=== PATIENT | female | born 1950 | race Caucasian/White ===

== ENCOUNTER → 2020-06-29 | Outpatient (CLI) | payer BC | LOC: MC.RAD 14:49 | DX: Z12.31 Encounter for screening mammogram for malignant neoplasm of breast (principal) ==

== ENCOUNTER 2021-03-26 18:39 | Emergency (ER) | payer BC ==
[~2021-03-26] VITALS: Ht 160 cm; Wt 68.2 kg
[2021-03-26 19:28] VITALS: TEMP 97.4
[2021-03-26 20:57] LABS: BASO # 0.1 (0.0-0.2); BASO % 1.1 % (0.0-2.0); EOS # 0.1 (0.0-0.7); EOS % 2.6 % (0-4.0); GRAN # 2.5 (1.4-6.5); GRAN % 52.7 % (42.2-75.2); HEMATOCRIT 43.9 % (37.0-47.0); HEMOGLOBIN 14.5 g/dl (12.5-16.0); LYMPH # 1.6 (1.2-3.4); LYMPH % 34.4 % (20.0-51.0); MEAN CELL VOLUME 98 fl (80.0-100.0); MEAN CORPUSCULAR HEMOGLOBIN 32 pg (27.0-31.0); MEAN CORPUSCULAR HGB CONC 33 g/dl (33.0-37.0); MONO # 0.4 (0.1-0.6); PLATELET COUNT 243 K/mm3 (130-400); RED BLOOD COUNT 4.49 M/mm3 (4.10-5.30); REDCELL DISTRIBUTION WIDTH-CV 13.8 % (11.5-14.5)
[2021-03-26 21:08] LABS: COLLECTION METHOD CLEAN CATCH
[2021-03-26 21:10] LABS: ALANINE AMINOTRANSFERASE 55 U/L (4-34); ALBUMIN 4.5 gm/dL (3.5-5.0); ALCOHOL(ethanol),MEDICAL 266 mg/dL; ALKALINE PHOSPHATASE 68 U/L (50-136); ANION GAP 15 mmol/L (7-16); AST,SGOT 77 U/L (15-37); BILIRUBIN,TOTAL 0.4 mg/dL (0.0-1.0); BLOOD UREA NITROGEN 17 mg/dL (7-17); CARBON DIOXIDE 23 mmol/L (22-30); CHLORIDE 107 mmol/L (98-107); CREATININE, serum 0.65 (0.52-1.25); GLUCOSE 94 mg/dL (74-106); POTASSIUM 4.1 mmol/L (3.4-5.0); SODIUM 144 mmol/L (137-145); TOTAL PROTEIN 7.3 gm/dL (6.4-8.2)
[2021-03-26 21:18] LABS: PH 6 (5-8); SQUAMOUS EPITHELIAL 0-2 /hpf; URINE APPEARANCE Clear; URINE BACTERIA Rare /hpf; URINE BILIRUBIN Negative (NEGATIVE); URINE BLOOD Negative (NEGATIVE); URINE COLOR Yellow; URINE GLUCOSE Negative (NEGATIVE); URINE KETONE Negative (NEGATIVE); URINE LEUKOCYTE ESTERASE Trace (NEGATIVE); URINE NITRATE Positive (NEGATIVE); URINE PROTEIN(semi-quant) Negative (NEGATIVE); URINE RBC 0-2 /hpf; URINE UROBILINOGEN Negative (NEGATIVE)
[2021-03-26 21:22] LABS: TROPONIN-I < 0.012 ng/mL (0.000-0.035)
[2021-03-26 21:23] LABS: TRICYCLIC ANTIDEPRESS URINE NEGATIVE
[2021-03-26 21:51] VITALS: BP 131/84; PULSE 83
== END 2021-03-26 21:42 | disposition home or self-care (01) ==
LOC: COL.ER 18:39
PROVIDERS: Physician Assistant
DX: F10.129 Alcohol abuse with intoxication, unspecified (principal); Y90.8 Blood alcohol level of 240 mg/100 ml or more

== ENCOUNTER → 2021-09-06 | Outpatient (CLI) | payer BC | LOC: MC.RAD 10:23 | DX: Z12.31 Encounter for screening mammogram for malignant neoplasm of breast (principal) ==

== ENCOUNTER 2022-07-26 10:32 | Day surgery (SDC) | payer BC ==
[~2022-07-26] VITALS: Ht 160 cm; Wt 67.0 kg
[2022-07-26] MEDS ORDERED: GLUCOPHAGE XR500 M1 PO (11:13)
[2022-07-26] MEDS ORDERED: ARMOUR THYROID90 MG PO (11:14)
[2022-07-26] MEDS ORDERED: ARMOUR THYROID15 MG PO (11:15)
[2022-07-26] MEDS ORDERED: PROMETRIUM100 MG PO (11:16)
[2022-07-26] MEDS ORDERED: OMEGA-3 FISH1000 MG PO (11:17)
[2022-07-26] MEDS ORDERED: VITAMIND3 5000 PO (11:18)
[2022-07-26] MEDS ORDERED: B-12 500 MCG PO (11:19)
[2022-07-26] MEDS ORDERED: THE MEDICINE S200 M2 PO (11:20)
[2022-07-26 12:02] VITALS: BP 115/66; PULSE 51; TEMP 97.6
[2022-07-26] MEDS ORDERED: NORCO 325 MG-51 TAB PO (15:17)
[2022-07-26 15:35] VITALS: BP 132/65; PULSE 55; TEMP 98
[2022-07-26 15:50] VITALS: BP 116/55; PULSE 54
[2022-07-26 16:05] VITALS: BP 115/69; PULSE 59
[2022-07-26 16:20] VITALS: BP 129/60; PULSE 54
--- NOTE | 2022-07-26 17:10 | NUR ---
1535-PT TO BAY 4 PER CART FROM PACU. REPORT RECEIVED. VS OBTAINED. CALL LIGHT WITHIN REACH. PT DENIES ANY NEEDS AT THIS TIME. 1550-PT TOLERATING ICED TEA WITHOUT DIFFICULTY. 1630-PT AMBULATED TO RESTROOM WIHTOUT DIFFICULTY AND VOIDED. 1640-IV DC'D AT THIS TIME. 1700-DISCHARGE EDUCATION COMPLETED WITH PT AND HER . VERBALIZED UNDERSTANDING OF HOME AND FOLLOW UP CARE. ALL QUESTIONS ANSWERED. DISCHARGE PAPERWORK GIVEN TO PT. 1710-PT OFF UNIT PER WHEELCHAIR. PT DISCHARGED TO HOME WITH PER PERSONAL VEHICLE.
== END 2022-07-26 17:10 | disposition home or self-care (01) ==
LOC: SDCO 10:32
DX: K43.9 Ventral hernia without obstruction or gangrene (principal)
CPT/HCPCS: C1781; J0690; J1100; J1885; J2175; J2250; J2405; J2704; J2795; J3010; J7120

== ENCOUNTER → 2023-02-21 | Outpatient (CLI) | payer BC ==
[~2023-02-21] MED LIST: ARMOUR THYROID15 MG PO; ARMOUR THYROID90 MG PO; B-12 500 MCG PO; GLUCOPHAGE XR500 M1 PO; NORCO 325 MG-51 TAB PO; OMEGA-3 FISH1000 MG PO; PROMETRIUM100 MG PO; THE MEDICINE S200 M2 PO; VITAMIND3 5000 PO
== END ==
LOC: MC.RAD 10:38
DX: Z12.31 Encounter for screening mammogram for malignant neoplasm of breast (principal)

== ENCOUNTER 2023-11-24 14:54 | Outpatient (CLI) | payer BC ==
[~2023-11-24] VITALS: Ht 160 cm; Wt 67.4 kg
[~2023-11-24 14:54] MED LIST changes: +ISOPTIN SR120 MG PO; +MAGNESIUM CITR100 MG PO; +NATURAL IRON65 MG PO; +PRECOSE 25MG25 MG PO; +PROBIOTIC BLEN1 EACH PO; +RESVERATROL250 MG PO; +SAM E PO; +ZINC CARNOSINE PO; +ZOFRAN 4MG T4 MG/TAB PO; +[UNRECOGNIZED DRUG - OTHER] PO
[2023-11-24 15:29] VITALS: BP 121/82; PULSE 58; TEMP 98.8
== END 2023-11-24 16:26 ==
LOC: EUO 14:54
DX: M81.0 Age-related osteoporosis without current pathological fracture (principal)
CPT/HCPCS: J3489